=== PATIENT | female | born 1970 | race Caucasian/White ===

== ENCOUNTER → 2019-03-11 16:46 | Outpatient (CLI) | payer OTHER, SELFPAY ==
--- NOTE | 2019-03-11 | EMB_PTH ---
PATIENT: LISA SAHA LOC: [place] U#:[id number] AGE/SX: 54/F ROOM: RE03/11/[address]: Dr. Patricia Browne MD : 1970 BED: DIS: SPEC #: [id number] RECD: 03/11/19 16:43 STATUS: BRANDI NANCY #: [id number] SIMON: 03/11/19 00:[address]: Patricia Browne DEPT: SURGICAL PATHOLOGY RECD BY: Hua John ENTERED: 03/12/19 07:35 SP TYPE: ENDOM BX/C OT DR: ARSEN Parnell Tissues: Endometrium, NOS Procedures: Surgery Specimen Level IV HEADER OPERATION: Endometrial biopsy PRE-OP DIAGNOSIS: Abnormal uterine bleeding TISSUE SUBMITTED: Endometrial biopsy MICROSCOPIC DIAGNOSIS Endometrium, biopsy: Proliferative endometrium. Mild chronic endometritis. AM:shima 03/13/19 MICROSCOPIC DESCRIPTION Slides are reviewed. GROSS DESCRIPTION Received is one container labeled with the patient's name and not further designated. The specimen consists of multiple irregular fragments of richards mucoid tissue that in aggregate measure 2.5 x 1 x 0.1 cm. The specimen is totally submitted in one cassette. / SJ:shima 03/12/19 TC:3 CPT: 13122
[2019-03-11 14:28] VITALS: BMI 29.2
== END ==
PROVIDERS: Family Provider Physician Assistant; PCP Physician Assistant; Referring Provider Obstetrics & Gynecology; Visit Provider Obstetrics & Gynecology
DX: N93.9 Abnormal uterine and vaginal bleeding, unspecified (principal)
CPT/HCPCS: 88305

== ENCOUNTER → 2019-06-26 13:40 | Outpatient (CLI) | payer OTHER, SELFPAY ==
[2019-06-18 04:45] VITALS: BMI 29.2
--- NOTE | 2019-06-26 13:40 | BI_ITS ---
MAMMOGRAPHY - UNILATERAL DIAGNOSTIC: RIGHT BREAST REASON FOR EXAM: Female, 48 years old. Right breast lump. PERTINENT HISTORY: Personal history of breast cancer. Prior left lumpectomy with radiation therapy. Grandmother with breast cancer. TECHNIQUE: Digital unilateral breast altagracia (3D mammographic acquisition) in the CC and MLO projections. 2-D mediolateral oblique (MLO) and craniocaudad (CC) views of both breasts were obtained. CAD: Full Field Digital Mammography with Computer Added Detection was performed. COMPARISON: Comparison is made with prior examination dated January 24, 2019. FINDINGS: Breast Composition: The breasts are extremely dense, which lowers the sensitivity of mammography. The palpable abnormality corresponds to a 4.7 cm x 2.8 cm well-defined nodule in the upper lateral aspect of the right breast. Correlation with ultrasound is recommended. No other significant abnormalities are identified. BI/DIAG MAMM W/CAD, UNILAT IMPRESSION: The palpable abnormality corresponds to a 4.7 cm x 2.8 cm well-defined nodule in the upper lateral aspect of the right breast as described. Correlation with ultrasound is recommended. ASSESSMENT CATEGORY: BIRADS Category 0: Incomplete. Need additional imaging evaluation. A letter regarding these results will be sent to the patient by the facility within 30 days. Approximately 10% of breast cancers are not detected by mammography. A normal mammogram should not delay biopsy of a clinically suspicious abnormality. Electronically Signed: Paddy Shipman, at 15:01 EDT , Service support ,
--- NOTE | 2019-06-26 13:40 | US_ITS ---
STUDY: ULTRASOUND BREAST - RIGHT REASON FOR EXAM: Female, 48 years old. Palpable lump in the right breast. TECHNIQUE: Axial and longitudinal images of the RIGHT breast were performed with a high resolution ultrasound transducer. # OF IMAGES: 36 COMPARISON: Comparison is made with prior mammogram done earlier in the day. FINDINGS: RIGHT Breast: The palpable abnormality corresponds to a 3 cm x 4.4 cm x 2.9 cm cyst. This is at the 10:00 position of the breast is 6 cm from the nipple. Adjacent to this, there is a 1.4 cm x 1.2 cm x 1 cm cyst. US/Breast Limited Unilateral IMPRESSION: A dominant cyst measuring 3 cm x 4.4 cm x 2.9 cm is seen at the 10:00 position of the breast at 6 cm from the nipple. Adjacent to this, there is a 1.4 cm x 1.2 cm x 1 cm cyst. ASSESSMENT CATEGORY: BIRADS Category 2: Benign. A letter regarding these results will be sent to the patient by the facility within 30 days. Electronically Signed: Paddy Shipman, at 15:14 EDT , Service support ,
== END ==
PROVIDERS: PCP Physician Assistant; Referring Provider Obstetrics & Gynecology; Visit Provider Obstetrics & Gynecology
DX: N63.10 Unspecified lump in the right breast, unspecified quadrant (principal)
CPT/HCPCS: 76642; 77061; 77065; G0279

== ENCOUNTER → 2019-08-06 12:33 | Outpatient (CLI) | payer OTHER, SELFPAY ==
[2019-03-11 14:28] VITALS: BMI 29.2
[2019-07-31 14:08] VITALS: BMI 29.2
== END ==
PROVIDERS: PCP Physician Assistant; Referring Provider Obstetrics & Gynecology; Visit Provider Obstetrics & Gynecology
DX: Z01.818 Encounter for other preprocedural examination (principal)

== ENCOUNTER 2019-08-13 18:30 | Observation (INO) | payer OTHER, SELFPAY ==
[2019-07-31 14:08] VITALS: BMI 29.2
[2019-08-08 14:21] VITALS: BMI 29.2
[2019-08-13] VITALS (15 sets, daily range): BP systolic 112–145; BP diastolic 64–89; PULSE 77–118; RESP 14–18; TEMP 36.1–37.1; O2SAT 95–100; BMI 29.3; BMI 29.8
[2019-08-13 08:51] LABS: Hematocrit 38.8 % (37-47); Hemoglobin 12.2 g/dL (12.0-15.0); Mean Corp Hgb Conc 31.4 g/dL (32-36); Mean Corpuscular Hgb 27.7 pg (27.0-32.0); Mean Platelet Vol. 10.6 fl (6.2-12.0); Platelet Count 224 K/mm3 (150-450); RBC Distribution Width CV 13.2 % (11.6-14.6); RBC Distribution Width SD 42.2 fl (35.1-43.9); Red Blood Count 4.41 M/mm3 (4.2-5.4); White Blood Count 6.4 K/mm3 (4.4-11.0)
[2019-08-13 09:05] LABS: AST(SGOT) 11 U/L (15-37); Alanine Aminotransfer ALT/SGPT 14 U/L (13-56); Albumin, Serum 3.5 g/dL (3.2-5.0); Alkaline Phosphatase 59 U/L (45-117); Bilirubin, Direct 0.12 mg/dL (0.00-0.30); Globulin 3.6 g/dL (2.2-4.2); Protein, Total 7.1 g/dL (6.4-8.2)
[2019-08-13 09:09] LABS: Prothrombin Time (Protime)PT. 12.7 SECONDS (11.7-14.9)
[2019-08-13 09:10] LABS: Partial Thromboplast Time 31.4 Seconds (24.1-36.2)
[2019-08-13 09:15] LABS: Bedside Glucose 74 mg/dL (70-110)
[2019-08-13 09:15] LABS: Internal QC Validated? YES +Cl - CLEAR BKGD; Pregnancy, Urine Negative Negative
[2019-08-13] MEDS: Lactated Ringers 1,000 ML 40 ML IV (09:33)
[2019-08-13] MEDS: Scopolamine 1mg/72hr Patch 1 PATCH TRANSDERM. (09:34)
[2019-08-13] MEDS: dexAMETHasone 10 MG/ML Vial 8 MG IV (09:34)
[2019-08-13] MEDS: Enoxaparin 40 MG/0.4 ML Syringe SC (09:34)
[2019-08-13] MEDS: Phenazopyridine 95 MG Tablet 190 MG PO (09:36)
[2019-08-13] MEDS: Celecoxib 200 MG Capsule 400 MG PO (09:36)
[2019-08-13] MEDS: Acetaminophen 500 MG Tablet 1000 MG PO ×2 (09:36→15:07)
[2019-08-13] MEDS: Gabapentin 600 MG Tablet PO (09:37)
[2019-08-13] MEDS: Vasopressin 20 UNITS/ML Vial (10:00)
--- NOTE | 2019-08-13 10:21 | PCM.HPOB.BLA ---
- Problem List (1) Uterine fibroid Status: Acute Comment: obtain US records, emb done 03/11, discussed depot lupron, ablation, uterine artery embolization History and Physical Date of Admission: 08/13/19 Intake Vital Signs 06/17/19 Height 5 ft 6 in 06/17/19 Weight: 180 lb 6 oz 06/17/19 BMI 29.1 06/17/19 BP 128/80 H Intake Visit Reasons: pre op LAVH BS cysto Allergies No Known Allergies Allergy (Unverified 06/17/19 16:12) Medications citalopram 20 mg tablet 20 mg PO DAILY 03/11/19 [History Confirmed 06/17/19] Is last menstrual period known: Yes Last Menstral Period: 06/13/19 Post menopausal: No Patient : No : No [facility] Medical History Anxiety (Acute) Breast cancer (Acute) Congenital abnormality of kidney (Acute) Menorrhagia (Acute) Surgical History H/O lumpectomy (Acute) H/O pyloroplasty (Resolved) Family History Mother Cancer lung-nonsmoker Grandmother Breast cancer Aunt Breast cancer Social History (Updated 06/18/19 @ 04:[address] Patricia Browne MD) Smoking Status: Never smoker alcohol intake: current details: social substance use type: does not use caffeine: Yes what type of physical activity do you participate in: none seatbelt use: always do you feel safe at home: Yes HPI pre op LAVH BS cysto: Details: LISA SAHA is a 48 year old who presents for AUB and uterine fibroid. she has heavy bleeding monthly that is worsening and is going to have an LAVH. Female Reproductive History Last Menstral Period: 06/13/19 Cycle Length: 21-35 Bleeding Duration: 7 Questions: Metorrhagia: No, Sexually active: Yes, Dyspareunia: No, PCB: No Pregancy History 2 Elective abortions Hx Para 2 Spontaneous abortions Hx # Term Pregnancies Ectopic pregnancies Hx # Pregnancies Multiple births # of living children ROS Const Constitutional: Denies fatigue, fever(s), headache(s), increased appetite, poor appetite, weight gain or weight loss ENT ENT: Denies dizziness or dry mouth Cardio Card: Denies chest pain Resp Resp: Denies cough or dyspnea GI GI: Reports as per HPI; denies abdominal pain, constipation, nausea or vomiting : Reports as per HPI; denies difficulty urinating, painful urination, pelvic pain, urinary frequency, urinary incontinence, urinary hesitancy, urinary urgency, vaginal discharge, vaginal dryness, vaginal odor or vaginal itching Musc Musc: Denies joint pain, back pain or muscle weakness Skin Skin/Breast: Denies hair loss, change in hair, dry skin, breast lump, breast pain or breast skin changes Neuro Neuro: Denies dizziness Psych Psych: Denies anxiety or depression Endo Endo: Denies cold intolerance, excessive sweating, heat intolerance or increased thirst Aquilino/Lymph Hematologic/Lymphatic: Denies easy bleeding, Denies easy bruising, Denies enlarged lymph nodes Exam Const General: cooperative, healthy appearing, comfortable, no acute distress, well developed Nutritional Appearance: average body habitus Orientation: alert HENFL Head: normal to inspection, normocephalic Ears: hearing grossly normal bilaterally, external ears normal Nose: external nose normal, nares normal Face and sinus: normal facial exam Neck Neck: normal visual inspection, no lymphadenopathy, trachea midline Thyroid: thyroid normal Chest Chest palpation & inspection: normal inspection of the chest Resp Effort & Inspection: normal respiratory effort Auscultation: clear to auscultation bilaterally Cardio Rate: regular rate Rhythm: regular rhythm Heart Sounds: S1 normal, S2 normal GI Inspection: normal to inspection, non-distended Palpation: soft, no hepatosplenomegaly General: bladder normal to palpation External Female Exam: normal external appearance, normal appearance of the urethra Urethra: normal appearance of the urethra Speculum Exam - Vagina: normal appearance of the vagina, normal vaginal discharge Speculum Exam - Cervix: normal appearance of the cervix, nontender Bimanual Exam- Vagina & Uterus: bladder normal to palpation, No cervical tenderness Bimanual Exam- Adnexa, other: normal adnexae, adnexae mobile, no adnexal masses, pelvic support normal Pelvic Support: normal Musc Cervical Spine: other Other: gross motor intact no deficits, full bilateral strength Skin General: no rashes or lesions noted Neuro General: alert, awake, moves all extremities, no focal motor deficits Motor: muscle tone normal throughout Extrem General: normal to inspection, no pedal edema Psych Appearance: grossly normal Mental Status: mental status grossly normal Affect: normal affect Speech and Movement: speech and movement normal Assessment & Plan Problems 1. Lump of right breast N63.10 imaging ordered. h/o breast cancer 2. Uterine fibroid D25.9 obtain US records, emb done 03/11, discussed depot lupron, ablation, uterine artery embolization Plan After discussing the patient's diagnosis and treatment plan options, patient wishes to proceed with surgical management. I have discussed with the patient the risks, benefits, and alternatives of the procedure which include but are not limited to risks of anesthesia, bleeding, infection, possible damage to bowel, bladder, or surrounding vasculature which could lead to additional surgery to evaluate any complications. Patient agrees to procedure and wishes to proceed. ACOG/uptodate references given for additional information regarding procedure. UPDATE- I have seen the patient and performed any clinically relevant updates to the history and physical exam. Patricia Browne MD Orders Orders: DIAG MAMM W/CAD, BILAT 06/17/19 N63.10 Breast Limited Unilateral 06/17/19 N63.10 Coding Level of Care Code No Charge Diagnoses Lump of right breast N63.10 Uterine fibroid D25.9
--- NOTE | 2019-08-13 10:23 | OP.PCM_ITS ---
Problem List (1) Uterine fibroid Status: Acute Comment: obtain US records, emb done 03/11, discussed depot l upron, ablation, uterine artery embolization Report of Operation Date of Procedure: 08/13/19 Pre-Operative Diagnosis: aub uterine fibroids Surgery/Procedure Performed:: lavh bs cysto tennis player: Emelina Camejo Type of Anesthesia:: General Specimen's removed: uterus tubes Drains: junior Fluids Replaced: crystalloid Description of Procedure: Patient received preoperative antibiotics and SCDs were on preoperatively. Patient was taken back to the operating room and placed in the dorsal lithotomy position. General anesthesia was induced and patient was prepped and draped in normal sterile fashion. Uterine manipulator was placed inside the uterus and Junior catheter placed in the bladder. The umbilicus was grasped with towel clamps and an intraumbilical incision was made after injecting with quarter percent Marcaine and a Veress needle entered into the abdomen confirmed to be intra-abdominal with a low opening pressure. Abdomen was insufflated with CO2 gas and the Veress needle removed and the 5 mm trocar was placed under direct visualization without complication. Right and left lower quadrants were transilluminated and injected with quarter percent Marcaine and 5 mm ports placed under direct visualization. Pelvis was well visualized see operative findings for additional information. Bilateral fallopian tubes were identified and transected with the LigaSure device across the mesosalpinx to the level of the utero-ovarian ligament which was also transected with the LigaSure device. The broad ligament was opened up by transecting the round ligament bilaterally and skeletonizing the uterine vessels bilaterally and creating a bladder flap using the LigaSure device. The uterine arteries were transected bilaterally with good visualization of the bladder and the ureters were seen to be inferior lateral to the operative area. Attention was then paid to the vaginal portion of the procedure and the cervix was grasped with Iris clamps and circumferentially injected with dilute vasopressin. A circumferential incision was made and the vaginal mucosa was mobilized off posteriorly and the cul-de-sac entered into sharply and a longneck speculum placed. The anterior cul-de-sac was then identified and entered into sharply. The uterosacral ligaments were clamped cut and suture ligated with 0 Monocryl bilaterally followed by the cardinal ligaments which were clamped cut and suture ligated bilaterally with 0 Monocryl. The uterus serially descended and was removed without difficulty with minimal morcellation. Pelvic sidewall pedicles were checked and noted to have excellent hemostasis. The vaginal mucosa was reapproximated incorporating the posterior peritoneum. This was reapproximated using 0 Vicryl [id number] sutures. Excellent hemostasis was noted. The cystoscopy was then performed and bilateral ureteral strong spray was noted and the bladder was noted to have no abnormality or lesions seen. Junior catheter was replaced and then attention paid to the abdominal portion of the procedure again. The pelvis and cul-de-sac was well visualized and no significant active bleeding noted but some raw areas were seen on the peritoneum and therefore Jose was applied. Pressure was taken down and the areas visualized and noted of excellent hemostasis. All ports were removed under direct visualization without complication and the abdomen was desufflated of air. The instruments removed from the abdomen and the vagina vaginal sweep was negative. Port sites on the abdomen were closed with 4-0 Monocryl interrupted sutures and Steri's and windows were applied. She was awoken and taken recovery in stable condition. Multi Select Codes - Urinary/Genital Urinary/Genital CPT Codes: 76196 Cystoscopy, 93197 LAVH+BS/O <250gr Uterus
--- NOTE | 2019-08-13 10:24 | DCINST_ITS ---
Discharge Diet: No Restrictions Discharge Activity: Return to Normal Activity, May Not Drive, May Shower May resume sexual activity in: 6-8 weeks Call your doctor if your incision/area has: Continuous Slow Oozing, Sudden Increased Bleeding, Increased Pain/ Swelling, Increased Redness, Foul Smelling Discharge Call your doctor if you observe: Fever of 101 or Higher, Inability to urinate, Inability to have a bowel movement, Using more than one pad per hour Allergies/Adverse Reactions: Allergies meperidine [From Demerol] Adverse Reaction (Verified 08/13/19 09:08) Nausea/Vom/Diarrhea Medications to take at Discharge citalopram 20 mg tablet 20 mg PO DAILY 03/11/19 Orders to be completed after discharge: Chest PA and Lateral [RAD] Time Frame: 08/13/19, Facility: [facility], Location: [facility] [place] Primary Care Physician: Jorge A Flores PA [Primary Care Provider] - Test Results: Test results from this visit will be discussed in further detail at your follow- up appointment, if applicable. Please Follow Up With: Patricia Browne MD - [phone]
[2019-08-13] MEDS: Cefazolin 2 GM in 0.9% Normal Saline 100 ML IV (10:45)
--- NOTE | 2019-08-13 10:45 | HYST_PTH ---
PATIENT: LISA SAHA LOC: [place] U#:[id number] AGE/SX: 49/F ROOM: [place]318 RE08/13/[address]: Dr. Patricia Browne MD : 1970 BED: 1 DIS: 08/14/2019 SPEC #: [id number] RECD: 08/13/19 13:40 STATUS: BRANDI REDesire #: [id number] SIMON: 08/13/19 10:[address]: Patricia Browne DEPT: SURGICAL PATHOLOGY RECD BY: Amaris Pichardo ENTERED: 08/14/19 09:10 SP TYPE: HYSTERECT OTHR DR: ARSEN Parnell Tissues: Uterus, NOS Procedures: Surgery Specimen Level V HEADER OPERATION: ERAS, hysterectomy, LAVH, salpingectomy PRE-OP DIAGNOSIS: Uterine fibroids TISSUE SUBMITTED: Bilateral fallopian tubes, uterus and cervix MICROSCOPIC DIAGNOSIS Uterus, hysterectomy: Cervix - nabothian cysts and minimal chronic inflammation. Endometrium - proliferative endometrium. Myometrium - leiomyomas and adenomyosis. Right fallopian tube - benign paratubal cyst. Left fallopian tube - benign paratubal cyst. AM:shima 08/15/19 MICROSCOPIC DESCRIPTION Slides are reviewed. GROSS DESCRIPTION Received in fixative is one container labeled with the patient's name and designated bilateral fallopian tubes, uterus and cervix. The specimen consists of a hysterectomy specimen consisting of uterus with cervix and attached left fallopian tube and detached right fallopian tube. The uterus with cervix weighs 293 gm and measures 13 x 10 x 7 cm. The serosal surface is richards, glistening. The ectocervical mucosa is unremarkable. The external os is oval in contour. Sectioning of the cervix reveal multiple richards cysts filled with mucoid material. The triangular endometrial cavity measures 6 cm in length and up to 4.5 cm in width. The endometrium is richards, glistening without any mass lesion and measures 0.1 cm in thickness. Sectioning of the uterine wall reveals multiple richards, nodular masses. The largest measures 1 cm in diameter. Sections of these masses reveal richards whorled cut surfaces without areas of hemorrhage, necrosis or cystic degeneration. Sections of the uterine wall also reveal a focal cyst area filled with chocolate-brown material consistent with adenomyosis. The uninvolved uterine wall is diffusely thickened and measures up to 3.5 cm in thickness suspicious for adenomyosis. The attached left fallopian tube measures 7 cm in length and up to 1 cm in diameter. The fimbrial end is identified. A paratubal cyst is noted adjacent to the fimbrial end measuring 1 cm in greatest dimension and is filled with clear fluid. The proximal portion of fallopian tube also shows a plastic ring consistent with previous tubal occlusion. The attached right fallopian tube measures 5.5 cm in length and 0.7 cm in diameter. The fimbrial end is identified. A paratubal cyst is noted measuring 1 cm in greatest dimension. It is filled with clear fluid. Sections reveal unremarkable cut surfaces. No plastic ring is identified in this fallopian tube. Trade Facilitator sections are submitted in nine cassettes as follows: 1 - anterior cervix, 2 - posterior cervix, 3 & 4 - anterior uterine wall, 5 & 6 - posterior uterine wall, 7 - nodular masses, 8 - left fallopian tube and paratubal cyst, 9 - right fallopian tube and paratubal cyst. / SJ:shima 08/14/19 TC:1 CPT: 63021
[2019-08-13] MEDS: Lactated Ringers 1,000 ML 70 ML IV ×2 (11:05→16:48)
[2019-08-13] MEDS: Bupivacaine 0.25% 30 ML Vial (11:20)
[2019-08-13] MEDS: Ketorolac 30 MG/ML Syringe IV ×2 (11:30→18:03)
[2019-08-13] MEDS: Ondansetron 4 MG/2 ML Vial IV ×2 (11:57→22:56)
[2019-08-13] MEDS: oxyCODONE 5 MG Tablet PO (15:08)
--- NOTE | 2019-08-13 15:15 | SUR.PHASEII ---
FC removed per verbal order of Dr Browne. Dr Browne called for update, pt very groggy, requests to stay overnight in hospital.
[2019-08-13 15:36] LABS: Hematocrit 38.9 % (37-47); Hemoglobin 11.9 g/dL (12.0-15.0); Mean Corp Hgb Conc 30.6 g/dL (32-36); Mean Corpuscular Hgb 27.5 pg (27.0-32.0); Mean Corpuscular Volume 89.8 fL (81-99); Mean Platelet Vol. 10.6 fl (6.2-12.0); Platelet Count 206 K/mm3 (150-450); RBC Distribution Width CV 12.9 % (11.6-14.6); RBC Distribution Width SD 42.6 fl (35.1-43.9); Red Blood Count 4.33 M/mm3 (4.2-5.4); White Blood Count 13.3 K/mm3 (4.4-11.0)
[2019-08-13] MEDS: Ondansetron ODT 4 MG Tablet PO (15:41)
--- NOTE | 2019-08-13 16:37 | SUR.PHASEII ---
Lg emesis after po pain meds given with Jello and crackers approx 500cc, nausea improved given SL oliver, charge nurse arranging for room on Med Surg. Mod amt of dk red blood on peripad changed.
[2019-08-13] MEDS: FERRIC SUBSULFATE 8 GM SOLN (17:29)
[2019-08-13] MEDS: Estrogens,Conj. 1 Tube 1 DOSE (17:40)
[2019-08-13] MEDS: Lactated Ringers 500 ML IV.SOLN. IV (17:58)
[2019-08-13] MEDS: HYDROmorphone 1 MG/ML Syringe IV (18:01)
--- NOTE | 2019-08-13 18:15 | SUR.PHASEII ---
Dr Browne to bedside, pt having lg dk clots and active bleeding, packing with premarin and moncel cream used, no further bleeding noted, pt manuela procedure very well, vss, [facility], new orders for iv pain and nausea meds, h/h at midnight and call dr browne if saturates more than 1 pad a hour. fc replaced by dr browne at this time.
[2019-08-13] MEDS: Docusate Sodium 100 MG Capsule PO (22:48)
[2019-08-13] MEDS: 0.9% Saline Lock 10 ML Syringe IV (22:56)
[2019-08-14] MEDS: Acetaminophen 500 MG Tablet 1000 MG PO ×3 (00:05→12:07)
[2019-08-14] MEDS: Ketorolac 30 MG/ML Syringe IV ×3 (00:06→12:08)
[2019-08-14] MEDS: 0.9% Saline Lock 10 ML Syringe IV ×2 (00:08→05:55)
[2019-08-14 00:12] LABS: Hematocrit 29.7 % (37-47); Hemoglobin 9.4 g/dL (12.0-15.0)
[2019-08-14 02:50] VITALS: BP 121/63; PULSE 71; RESP 16; TEMP 36.6; O2SAT 94
[2019-08-14 04:17] VITALS: BP 113/80; BP 120/76; BP 125/63; PULSE 67; PULSE 71; PULSE 77
--- NOTE | 2019-08-14 04:20 | NURSING ---
0420 pt reports gas pressure. Pt stated she wanted to get up and walk. Pt sat at the edge of the bed and denied being light headed or dizzy. This nurse and screwhead stoner and polisher assisted the pt to walk in the pierce. Pt stated she was getting a little dizzy. had pt sit in chair and screwhead stoner and polisher went to get a wheelchair. Assisted pt back to her room via wheelchair, assisted pt back to bed and obtained orthostatic vitals. After standing for the orthostatic BP, pt stated she was starting to have nausea. The nausea subsided after pt returned to bed.
[2019-08-14] MEDS: Lactated Ringers 1,000 ML 70 ML IV (04:31)
[2019-08-14 05:51] VITALS: BP 115/65; PULSE 88; RESP 16; TEMP 36.6; O2SAT 94
[2019-08-14 07:02] LABS: Hematocrit 27.2 % (37-47); Hemoglobin 8.9 g/dL (12.0-15.0); Mean Corp Hgb Conc 32.7 g/dL (32-36); Mean Corpuscular Hgb 27.7 pg (27.0-32.0); Mean Corpuscular Volume 84.7 fL (81-99); Mean Platelet Vol. 10.7 fl (6.2-12.0); Platelet Count 220 K/mm3 (150-450); RBC Distribution Width CV 13.1 % (11.6-14.6); RBC Distribution Width SD 40.1 fl (35.1-43.9); Red Blood Count 3.21 M/mm3 (4.2-5.4); White Blood Count 12.5 K/mm3 (4.4-11.0)
[2019-08-14 07:18] LABS: Scan Indicated on CBC? Y/N NO
--- NOTE | 2019-08-14 08:06 | PN.OBGYN_ITS ---
Subjective: patient seen and evaluated overnight- had increased vaginal bleeding so vaginal packing was placed and junior replaced, patient admitted STO overnight. - Physical Exam Vitals/I&O's: Vital Signs Temp Pulse Resp BP Pulse Ox 97.8 F 88 16 115/65 94 08/14/19 05:51 08/14/19 05:51 08/14/19 05:51 08/14/19 05:51 08/14/19 05:51 Oxygen Flow Rate (L/min) 1 Oxygen Delivery Method Room Air Weight: 185 lb Body Mass Index (BMI) 29.8 Orthostatic Vital Signs Start: 08/14/19 04:17 Freq: q24h Status: Active Protocol: Activity Type Activity Date Activity User E-Sign Co-Sign Detail Recorded Client Recorded Date Recorded By Document 08/14/19 04:17 MM [id number] 08/14/19 04:27 MM 08/14/19 04:17 Orthostatic Vitals Standing -Blood Pressure (90/60-120/80 mm Hg) 113/80 -Extremity Use Right Arm -Pulse Rate (60-100 beats/min) 77 Sitting -Blood Pressure (90/60-120/80 mm Hg) 120/76 -Extremity Use Right Arm -Pulse Rate (60-100 beats/min) 67 Lying -Blood Pressure (90/60-120/80 mm Hg) 125/63 H -Extremity Use Right Arm -Pulse Rate (60-100 beats/min) 71 Intake and Output for Last 24 Hours 08/12/19 08/13/19 08/14/19 23:59 23:59 23:59 Intake Total 2110 / 2110 920.17 / 920.17 Output Total 1725 / 1725 300 / 300 Balance 385 / 385 620.17 / 620.17 Laboratory Results 08/13/19 08:40: WBC 6.4, RBC 4.41, Hgb 12.2, Hct 38.8, MCV 88.0, MCH 27.7, MCHC 31.4 L, RDW Std Deviation 42.2, RDW Coeff of Dawson 13.2, Plt Count 224, MPV 10.6 08/13/19 08:40: PT 12.7, INR 1.0, APTT 31.4 08/13/19 08:40: Total Bilirubin 0.40, Direct Bilirubin 0.12, AST 11 L, ALT 14, Alkaline Phosphatase 59, Total Protein 7.1, Albumin 3.5, Globulin 3.6 08/13/19 08:40: Magnesium 2.0 08/13/19 09:05: Urine Test Negative 08/13/19 09:09: POC Glucose 74 08/13/19 09:32: Blood Type A POSITIVE, Antibody Screen NEGATIVE 08/13/19 09:37: WBC Cancelled, Corrected WBC Cancelled, RBC Cancelled, Hgb Cancelled, Hct Cancelled, MCV Cancelled, MCH Cancelled, MCHC Cancelled, RDW Std Deviation Cancelled, RDW Coeff of Dawson Cancelled, Plt Count Cancelled, MPV Cancelled, Diff Path Review Cancelled 08/13/19 15:30: WBC 13.3 H, RBC 4.33, Hgb 11.9 L, Hct 38.9, MCV 89.8, MCH 27.5, MCHC 30.6 L, RDW Std Deviation 42.6, RDW Coeff of Dawson 12.9, Plt Count 206, MPV 10.6 08/14/19 00:04: Hgb 9.4 L, Hct 29.7 L 08/14/19 06:00: WBC 12.5 H, RBC 3.21 L, Hgb 8.9 L, Hct 27.2 L, MCV 84.7 D, MCH 27.7, MCHC 32.7 D, RDW Std Deviation 40.1, RDW Coeff of Dawson 13.1, Plt Count 220, MPV 10.7 Current Medications Acetaminophen (Tylenol) 1,000 mg PO Q6 [facility] Last Admin: 08/14/19 05:54 Dose: 1,000 mg Documented by: Docusate Sodium (Colace) 100 mg PO BID [facility] Last Admin: 08/13/19 22:48 Dose: 100 mg Documented by: Enoxaparin Sodium (Lovenox) 40 mg SC DAILY [facility] Hydromorphone HCl (Dilaudid Inj) 0.5 - 1 mg IV Q2H PRN PRN PRN Reason: Pain Score 4-10/10 Last Admin: 08/13/19 18:01 Dose: 0.5 mg Documented by: Hydromorphone HCl (Dilaudid Inj) 0.5 - 1 mg IV Q2H PRN PRN PRN Reason: Pain Score 4-10/10 Lactated Ringer's () 1,000 mls @ 70 mls/hr IV .[id number] [facility] Stop: 08/14/19 11:06 Last Admin: 08/14/19 04:31 Dose: 70 mls/hr Documented by: Insulin Human Lispro (Humalog Kwikpen ([facility] [place])) 0 unit SC Q4H PRN PRN; Protocol PRN Reason: BG >/= 180, SEE PROTOCOL Ketorolac Tromethamine (Toradol ([facility] [place])) 30 mg IV Q6 [facility] Stop: 08/14/19 18:01 Last Admin: 08/14/19 05:55 Dose: 30 mg Documented by: Magnesium Oxide (Mag-Ox 400) 400 mg PO DAILY PRN PRN PRN Reason: Constipation Nutritional Formula (Lactose Free) (Ensure Enlive) 120 ml PO TIDCM [facility] Last Admin: 08/13/19 18:45 Dose: Not Given Documented by: Ondansetron HCl (Zofran Odt) 4 mg PO Q6H PRN PRN PRN Reason: NAUSEA Last Admin: 08/13/19 15:41 Dose: 4 mg Documented by: Ondansetron HCl (Zofran) 4 mg IV Q6H PRN PRN PRN Reason: NAUSEA/VOMITING Last Admin: 08/13/19 22:56 Dose: 4 mg Documented by: Oxycodone HCl (Oxyir) 5 - 10 mg PO Q4H PRN PRN PRN Reason: Pain Score 4-10/10 Last Admin: 08/13/19 15:08 Dose: 5 mg Documented by: Sodium Chloride () 10 - 40 ml IV UD PRN PRN Reason: SALINE FLUSH Last Admin: 08/14/19 05:55 Dose: 10 ml Documented by: Medical Necessity - Tobacco Use Smoking Status: Former smoker Tobacco Use: Non-smoker Assessment/Plan All Active Problems (Last Updated 07/31/19 @ 13:59 by Saima Naranjo) Lump of right breast (Acute) Uterine fibroid (Acute)
[2019-08-14] MEDS: Lactated Ringers 1,000 ML 999 ML IV (08:34)
[2019-08-14 08:40] VITALS: BP 124/78; PULSE 71; RESP 16; TEMP 37; O2SAT 100
[2019-08-14] MEDS: Metoclopramide 10 MG/2 ML Vial 5 MG IV ×2 (08:42→12:04)
[2019-08-14] MEDS: oxyCODONE 5 MG Tablet PO (08:44)
[2019-08-14] MEDS: Docusate Sodium 100 MG Capsule PO (08:45)
[2019-08-14] MEDS: Enoxaparin 40 MG/0.4 ML Syringe SC (08:45)
[2019-08-14 13:40] VITALS: BP 113/61; PULSE 90; RESP 18; TEMP 36.7; O2SAT 94
== END 2019-08-14 14:25 | disposition home or self-care (01) ==
LOC: MS3 08-14 13:38 → SDC 08-14 13:38
PROVIDERS: Anesthesiology; Admitting Provider Obstetrics & Gynecology; PCP Physician Assistant; Referring Provider Obstetrics & Gynecology; Visit Provider Obstetrics & Gynecology
PROC: 0UT9FZZ Resection of Uterus, Via Natural or Artificial Opening With Percutaneous Endoscopic Assistance (ICD-10-PCS; CPT 58554; principal; 2019-08-13 10:20)
DX: D25.9 Leiomyoma of uterus, unspecified (principal); N80.0 Endometriosis of uterus; N83.8 Other noninflammatory disorders of ovary, fallopian tube and broad ligament; N88.8 Other specified noninflammatory disorders of cervix uteri; N63.10 Unspecified lump in the right breast, unspecified quadrant; G47.30 Sleep apnea, unspecified; G25.81 Restless legs syndrome; F41.9 Anxiety disorder, unspecified; Z85.3 Personal history of malignant neoplasm of breast; Z79.899 Other long term (current) drug therapy; Z87.891 Personal history of nicotine dependence
CPT/HCPCS: 58554; 36415; 80076; 81025; 82962; 83735; 85014; 85018; 85027; 85610; 85730; 86850; 86900; 86901; 88307; 94762; 96372; 96374; 96375; 96376; 99218; J7120; A4216; G0378; G0379; J2405

== ENCOUNTER 2023-02-03 05:42 | Day surgery (SDC) | payer OTHER, SELFPAY ==
[2023-02-03 06:17] VITALS: BP 122/71; PULSE 62; RESP 18; TEMP 36.2; O2SAT 100; BMI 27.8
[2023-02-03] MEDS: Lactated Ringers 1,000 ML 15 ML IV (06:34)
--- NOTE | 2023-02-03 06:59 | PCM.HP.BLA ---
History and Physical Date of Admission: 02/03/23 Pt presents with a left flank mass. The patient is examined and there are no changes to the H&P dated 01/18/23. Informed consent was obtained for excision left flank mass. 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
--- NOTE | 2023-02-03 07:30 | MASS_PTH ---
PATIENT: LISA SAHA LOC: [facility] [place] U#:[id number] AGE/SX: 52/F ROOM: RE02/03/[address]: Dr. Ana Azevedo MD : 1970 BED: DIS: 02/03/2023 SPEC #: [id number] RECD: 02/03/23 09:54 STATUS: BRANDI NANCY #: [id number] SIMON: 02/03/23 07:[address]: Ana Azevedo DEPT: SURGICAL PATHOLOGY RECD BY: Nancy Gayle ENTERED: 02/03/23 10:30 SP TYPE: Mass OTHR DR: Dr. 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 SJ:shima 02/06/2023 MICROSCOPIC DESCRIPTION Slides are reviewed. GROSS DESCRIPTION Received in fixative is one container labeled with the patient's name and designated subcutaneous mass left flank. The specimen consists of an irregular piece of adipose tissue measuring 6.5 x 5.0 x 2.5 cm. The external surface is inked. Sections reveal yellow adipose cut surfaces without areas of hemorrhage, necrosis or cystic degeneration. Stitch Marker sections are submitted in four cassettes. / CARLA:shima 02/03/2023 TC:1 CPT: 08505
[2023-02-03] MEDS: Cefazolin 2 GM in 0.9% Normal Saline (100mL Bag) 100 ML IV (07:32)
[2023-02-03] MEDS: Lidocaine 1% /Epi 1:100 (50ml) 50 ML VIAL (08:05)
[2023-02-03] MEDS: Bupivacaine 0.25% 30 ML Vial (08:30)
--- NOTE | 2023-02-03 08:45 | DCINST_ITS ---
Discharge Instructions Diet Discharge Diet: No restrictions Activity Additional Activity Instructions:: Avoid excessive bending or stretching. Dressing / Incision Additional Dressing/Incision Instructions:: Leave the dressing in place. May shower over the dressing, but do not scrub. If dressing area becomes irritated, may remove the dressing and replace with a large bandaid which should be changed daily. Follow Up Care Please Follow Up With: Ana Azevedo MD When: in 2 weeks Test Results: Test results from this visit will be discussed in further detail at your follow- up appointment, if applicable. Discharge Plan Admission Attending Provider: Ana Azevedo Primary Care Provider: Dave Bear Discharge Orders/Prescriptions Prescriptions: No Action citalopram [Celexa] 10 mg tablet 10 mg PO QHS Referrals / Follow Up: Dave Bear MD [Primary Care Provider] - Disposition Disposition (needs filled in before D/C Order can be placed): Home, Self Care
[2023-02-03 08:46] VITALS: BP 122/71; BP 124/90; PULSE 102; RESP 16; TEMP 36.6; O2SAT 97
--- NOTE | 2023-02-03 08:49 | OP.PCM_ITS ---
Problems Associated Problem List Diagnoses (1) Neoplasm of uncertain behavior of connective and other soft tissue: Report of Operation Date of Procedure: 02/03/23 Pre-Operative Diagnosis: Connective tissue mass left flank Post-Operative Diagnosis: Same Surgery/Procedure Performed:: Excision connective tissue mass left flank (8 cm) Surgeon: Ana Azevedo curator: MAURY MOOREcullet crusher and washer Type of Anesthesia: General Specimen's removed: Soft tissue mass flank Estimated Blood Loss (mL): Minimal Description of Procedure: The procedure of excision soft tissue mass left flank have been reviewed with the patient and informed consent obtained. She is marked in the preop holding area prior to surgery. The patient was brought to the operating room and placed under general anesthesia in the supine position. The patient is then turned to a right lateral decubitus position with care to pad all pressure points, apply sequential compression stockings, and a warming blanket. Positioning is maintained with a beanbag positioner. The flank is prepped and draped in the usual sterile fashion. The area and incision is injected with 1% Xylocaine with epinephrine. We initially began with making an incision over top of the mass. This is carried down through the subcutaneous tissue until the mass is encountered. The mass is then carefully enucleated from its bed. Meticulous hemostasis is maintained with cautery. After carefully inspecting the area to ensure complete removal, the incision is closed in 3 layers using a strata fix suture. The cavity is obliterated with sutures. Skin edges are approximated with a subcuticular suture. The area is then injected with quarter percent plain Marcaine. The area is dressed with Dermabond, Steri-Strips, and a Tegaderm. She tolerated the procedure well was taken to the recovery area in an awake and stable condition. Needle and sponge counts are correct. Complications None Admit VTE Documentation VTE Mechan Device Prophylaxis: SCD's
--- NOTE | 2023-02-03 08:53 | DCINST_ITS ---
Discharge Instructions Diet Discharge Diet: No restrictions Activity Additional Activity Instructions:: Avoid excessive bending or stretching. Dressing / Incision Additional Dressing/Incision Instructions:: Leave the dressing in place. May shower over the dressing, but do not scrub. If dressing area becomes irritated, may remove the dressing and replace with a large bandaid which should be changed daily. Follow Up Care Please Follow Up With: Ana Azevedo MD Test Results: Test results from this visit will be discussed in further detail at your follow- up appointment, if applicable. Discharge Plan Admission Attending Provider: Ana Azevedo Primary Care Provider: Dave Bear Discharge Orders/Prescriptions Prescriptions: New cephalexin 500 mg capsule 500 mg PO BID 7 Days Qty: 14 0RF No Action citalopram [Celexa] 10 mg tablet 10 mg PO QHS Referrals / Follow Up: Dave Bear MD [Primary Care Provider] - Disposition Disposition (needs filled in before D/C Order can be placed): Home, Self Care
[2023-02-03 09:00] VITALS: BP 122/71; BP 147/94; PULSE 110; RESP 16; O2SAT 96
[2023-02-03 09:17] VITALS: BP 122/71; BP 132/84; PULSE 87; RESP 16; TEMP 36.3; O2SAT 96
[2023-02-03 09:56] VITALS: BP 122/71
--- NOTE | 2023-02-03 10:40 | DCINST_ITS ---
Discharge Instructions Diet Discharge Diet: No restrictions Activity Additional Activity Instructions:: Avoid excessive bending or stretching. Dressing / Incision Additional Dressing/Incision Instructions:: Leave the dressing in place. May shower over the dressing, but do not scrub. If dressing area becomes irritated, may remove the dressing and replace with a large bandaid which should be changed daily. Follow Up Care Please Follow Up With: Ana Azevedo MD Test Results: Test results from this visit will be discussed in further detail at your follow- up appointment, if applicable. Discharge Plan Admission Attending Provider: Ana Azevedo Primary Care Provider: Dave Bear Discharge Orders/Prescriptions Prescriptions: New cephalexin 500 mg capsule 500 mg PO BID 7 Days Qty: 14 0RF fluconazole 150 mg tablet 150 mg PO DAILY Qty: 1 0RF Rx Instructions: Take only if needed for vaginitis No Action citalopram [Celexa] 10 mg tablet 10 mg PO QHS Referrals / Follow Up: Dave Bear MD [Primary Care Provider] - Disposition Disposition (needs filled in before D/C Order can be placed): Home, Self Care
== END 2023-02-03 10:55 | disposition home or self-care (01) ==
LOC: SDC 05:45 → AC 05:48
PROVIDERS: PCP Family Medicine; Referring Provider Plastic Surgery; Visit Provider Plastic Surgery
PROC: (CPT 21931; principal; 2023-02-03 07:20)
DX: D48.19 Other specified neoplasm of uncertain behavior of connective and other soft tissue (principal); F41.9 Anxiety disorder, unspecified; F32.A Depression, unspecified; Z79.899 Other long term (current) drug therapy
CPT/HCPCS: 21931; 00300; 88304; 88305; J7120; J2405